=== PATIENT | female | born 1970 | race African-American/Black ===

== ENCOUNTER → 2017-04-14 | Outpatient (CLI) | payer OTHER | END | disposition home or self-care (01) | LOC: CFH 12:25 | PROVIDERS: ATTEND Nurse Practitioner Family | DX: R94.6 Abnormal results of thyroid function studies (principal) | CPT/HCPCS: 76536 ==

== ENCOUNTER → 2017-06-08 | Outpatient (CLI) | payer OTHER | LOC: CFH 07:49 | DX: Z12.31 Encounter for screening mammogram for malignant neoplasm of breast (principal) | CPT/HCPCS: 77063; 77067 ==

== ENCOUNTER 2017-08-04 01:38 | Emergency (ER) | payer OTHER ==
[~2017-08-04] VITALS: Ht 165.1 cm; Wt 74.3 kg
[2017-08-04] MEDS ORDERED: IBUPROFEN 200 MG TABLET ONE (01:57)
[2017-08-04] MEDS ORDERED: DEXAMETHASONE 4 MG TABLET ONE (01:57)
[2017-08-04] MEDS ORDERED: DEXAMETHASONE 4 MG TABLET PO ONE (02:00)
[2017-08-04] MEDS ORDERED: IBUPROFEN 200 MG TABLET PO ONE (02:00)
[2017-08-04] MEDS ORDERED: KETOROLAC 30 MG/1 ML ONE ×2 (02:09→03:41)
[2017-08-04] MEDS ORDERED: MORPHINE SULFATE 4 MG/ML, 1ML ONE (02:09)
[2017-08-04 02:30] LABS: BASOPHILS # (AUTO) 0.02 x10^3/uL (0-0.1); BASOPHILS % (AUTO) 0 % (0-1); EOSINOPHILS # (AUTO) 0.01 x10^3/uL (0-0.4); EOSINOPHILS % (AUTO) 0 % (1-7); LYMPHOCYTES # (AUTO) 0.62 x10^3/uL (1-3.4); LYMPHOCYTES % (AUTO) 11 % (22-44); MD NO; MEAN CORPUSCULAR HEMOGLOBIN 28.2 pg (27.0-34.8); MEAN CORPUSCULAR HGB CONC 32.8 g/dL (32.4-35.8); MEAN CORPUSCULAR VOLUME 85.8 fL (80-100); MEAN PLATELET VOLUME 8.4 fL (7.4-10.4); MONOCYTES # (AUTO) 0.39 x10^3/uL (0.2-0.8); MONOCYTES % (AUTO) 7 % (2-9); NEUTROPHILS # (AUTO) 4.48 x10^3/uL (1.8-6.8); NEUTROPHILS % (AUTO) 81 % (42-75); PLATELET COUNT 201 x10^3/uL (130-400); RED BLOOD COUNT 4.74 x10^6/uL (3.82-5.3); RED CELL DISTRIBUTION WIDTH 13.5 % (9.6-15.2)
[2017-08-04] MEDS ORDERED: SODIUM CHLORIDE 0.9% 1,000ML IVBOLUS ONE (02:30)
[2017-08-04] MEDS ORDERED: MORPHINE SULFATE 4 MG/ML, 1ML IVPush ONE (02:30)
[2017-08-04] MEDS ORDERED: KETOROLAC 30 MG/1 ML IVPush ONE ×2 (02:30→04:00)
[2017-08-04] MEDS ORDERED: OMEP-110 PO (02:34)
[2017-08-04 02:41] LABS: ALBUMIN 3.9 g/dL (3.4-5.0); ANION GAP 8 mmol/L (5-15); CALCIUM 8.9 mg/dL (8.5-10.1); CHLORIDE 106 mmol/L (98-107)
[2017-08-04 02:42] LABS: CREATININE 0.97 mg/dL (0.55-1.02)
[2017-08-04] MEDS ORDERED: DEXAMETHASONE 4 MG/ML, 1ML ONE (02:46)
[2017-08-04] MEDS ORDERED: DEXAMETHASONE 4 MG/ML, 1ML IVPush ONE (03:00)
[2017-08-04] MEDS ORDERED: OMNIPAQUE 350 MG/ML, 100ML BOTTLE ONE (03:08)
[2017-08-04 03:30] VITALS: BP 154/86
== END 2017-08-04 03:54 | disposition home or self-care (01) ==
LOC: ED 03:48
DX: J02.8 Acute pharyngitis due to other specified organisms (principal); R07.0 Pain in throat; J04.0 Acute laryngitis; B97.89 Other viral agents as the cause of diseases classified elsewhere
CPT/HCPCS: 36415; 70491; 71046; 80048; 82040; 85025; 86308; 87081; 87880; 96374; 96375; 99285; J1100; J1885; J7030; Q9967

== ENCOUNTER 2018-06-12 07:07 | Outpatient (CLI) | payer OTHER ==
[~2018-06-12 07:07] MED LIST: OMEP-110 PO
== END 2018-06-12 23:59 | disposition home or self-care (01) ==
LOC: CFH 07:07
PROVIDERS: ATTEND Nurse Practitioner Family
DX: Z12.31 Encounter for screening mammogram for malignant neoplasm of breast (principal)
CPT/HCPCS: 77063; 77067

== ENCOUNTER → 2019-06-14 | Outpatient (CLI) | payer OTHER | END | disposition home or self-care (01) | LOC: CFH 06:52 | PROVIDERS: ATTEND Nurse Practitioner Family | DX: Z12.31 Encounter for screening mammogram for malignant neoplasm of breast (principal); N64.89 Other specified disorders of breast | CPT/HCPCS: 77063; 77067 ==

== ENCOUNTER 2020-07-04 08:11 | Outpatient (CLI) | payer OTHER | END 2020-07-04 23:59 | disposition home or self-care (01) | LOC: CFH 08:11 | PROVIDERS: ATTEND Nurse Practitioner Family | DX: Z12.31 Encounter for screening mammogram for malignant neoplasm of breast (principal) | CPT/HCPCS: 77063; 77067 ==